=== PATIENT | female | born 1955 | race Caucasian/White ===

== ENCOUNTER 2018-06-10 12:22 | Emergency (ER) | END 2018-06-10 16:06 | disposition home or self-care (01) ==

== ENCOUNTER → 2018-08-26 | Outpatient (CLI) | END | disposition home or self-care (01) ==

== ENCOUNTER 2019-01-19 15:20 | Emergency (ER) | payer SELFPAY ==
[~2019-01-19] VITALS: Ht 162.6 cm; Wt 68.2 kg
[~2019-01-19 15:20] MED LIST: AMLO5TAB4 PO; BACTDS PO; CIPR500T4 PO; HYDR25TA6 PO; LOSA100T15 PO; OMEP40CA6 PO; ONDA4TAB14 PO; RANI150T5 PO
[2019-01-19 15:28] VITALS: BP 166/78; PULSE 81; RESP 20; Ht 162.6 cm; Wt 68.2 kg
== END 2019-01-19 19:45 | disposition left against medical advice (07) ==
LOC: E/R 15:20
DX: Z53.21 Procedure and treatment not carried out due to patient leaving prior to being seen by health care provider (principal)